=== PATIENT | female | born 1995 | race Caucasian/White ===

== ENCOUNTER 2018-07-25 15:49 | Outpatient (CLI) | payer OTHER ==
[~2018-07-25] VITALS: Ht 160 cm; Wt 97.0 kg
[2018-07-25] MEDS ORDERED: PNV11TAB PO (15:58)
[2018-07-25 15:59] VITALS: Ht 160 cm; Wt 97.0 kg
[2018-07-25 16:00] VITALS: BP 116/61; PULSE 94; RESP 19
--- NOTE | 2018-07-25 17:01 | PN ---
Triage Information Date/Time July 25, 2018 Reason for visit: DFM Weeks of Gestation 33 weeks and 2 days /Para 1 para 0 Diabetes: none Hypertention: none Objective Vital Signs Date Temp Pulse Resp B/P (MAP) Pulse Ox O2 O2 Flow FiO2 Time Delivery Rate 07/25/18 98.6 94 19 116/61 High Flow 16:00 (79) Heart Rate: 150's Contractions: None Exam Deferred Results/Medications Imaging Results Normal biophysical profile. Cervix measures 3.6 cm in length. Disposition: Discharge Assessment/Plan Will follow as outpatient in clinic CHRISTINA ADHIKARI MD Jul 25, 2018 17:01
--- NOTE | 2018-07-25 17:29 | TRIAGE ---
OB Triage Datetime Report Generated by CPN: 07/25/2018 17:29 Datetime: 07/25/2018 16:49 Labor Evaluation Frequency: 0 Monitor Mode: External Pattern: Normal: <= 5 Contractions in 10 Minutes Resting Tone Decherd: Relaxed Contraction Comments: NONE NOTED Heart Rate FHR Baseline Rate: 140 Monitor Mode: External US Variability: Moderate 6-25 bpm Accelerations: 15X15 Decelerations: None Category: Category I Datetime: 07/25/2018 16:03 Assessment Type: Triage Maternal Assessment Level of Consciousness: Fully Conscious DTR's/Clonus: DTRs 2+; No Clonus Headache: Denies Blurred Vision: No Respiratory Effort: Unlabored; Regular Rhythm; Equal Expansion Breath Sounds, Left: Clear and Equal Breath Sounds, Right: Clear and Equal Nausea/Vomiting: Denies RUQ Epigastric Pain: Denies Lower Extremities Edema: None Degree: None Upper Extremities Edema: None Degree: None Facial Edema: None Fall Risk Assessment History of Falling: (0) No Secondary Diagnosis: (0) No Ambulatory Aid: (0) Bedrest/Nurse Assist IV Therapy: (0) No Gait: (0) Normal/Bedrest/Immobile Mental Status: (0) Oriented to Own Ability Fall Score: 0 Fall Risk Score Definition: No Risk: No action required Datetime: 07/25/2018 16:02 Time of Arrival: 07/25/2018 15:36 EGA: 33.2 Arrived By: Ambulatory Arrived From: Office Chief Complaint: DFM Movement: Present Contractions: Denies/Absent Rupture of Membranes: Denies Vaginal Bleeding: None Vaginal Discharge: Denies Recent Sexual Intercouse: Denies Abdominal Trauma: Not Applicable Patient Complaints: Other Time Provider Notified: 07/25/2018 17:02 Provider Notified: DR PIEDRA Initial Plan: TONY ARNOLD
== END 2018-07-25 17:10 | disposition home or self-care (01) ==
LOC: OBT 15:49 → L-D 15:51 → OBT 17:10
PROVIDERS: ATTEND Obstetrics & Gynecology
DX: O36.8130 Decreased fetal movements, third trimester, not applicable or unspecified (principal); Z3A.33 33 weeks gestation of pregnancy
CPT/HCPCS: 76818; Z7500; G0463

== ENCOUNTER 2018-09-13 11:39 | Inpatient (IN) | payer OTHER ==
[~2018-09-13] VITALS: Ht 160 cm; Wt 98.6 kg
[~2018-09-13 11:39] MED LIST: IBUP-1542 PO; PNV11TAB PO
[2018-09-13] MEDS ORDERED: OXYTOCIN 30 UNITS/LR 500 ML IV PRN (12:30)
[2018-09-13] MEDS ORDERED: CARBOPROST 250 MCG INJ IM PRN (12:30)
[2018-09-13] MEDS ORDERED: MISOPROSTOL 200 MCG TAB PR PRN (12:30)
[2018-09-13] MEDS ORDERED: MISOPROSTOL 50 MCG CAPSULE VAG ONE (12:30)
[2018-09-13] MEDS ORDERED: LIDOCAINE 1% (MPF) 30 ML INJ INJ PRN (12:30)
[2018-09-13] MEDS ORDERED: METHYLERGONOVINE 0.2 MG INJ IM PRN (12:30)
[2018-09-13] MEDS ORDERED: OXYTOCIN 30 UNITS/LR 500 ML IV SCH ×3 (12:30)
[2018-09-13 12:37] VITALS: BP 108/58; PULSE 109; RESP 20; Ht 160 cm; Wt 98.6 kg
[2018-09-13] MEDS: LACTATED RINGER'S 1,000 ML IV SCH ×2 (16:11→23:50)
[2018-09-13] MEDS: MISOPROSTOL 50 MCG CAPSULE PO SCH ×3 (16:53→21:05)
--- NOTE | 2018-09-13 19:08 | HP ---
Date/Time of Note Date/Time of Note DATE: 09/13/18 TIME: 19:02 OB - History Hx of Present Free Text/Dictation 23-year-old female 1 para 0 at 40 weeks and 3 days admitted for induction of labor Last Menstrual Period: Nov 15, 2017 Estimated Due Date: Sep 10, 2018 : 1 Para: 0 Care: Limited Care Ultrasounds: Normal mid trimester US Obstetrical Complications: Other (Incompliance. Positive RPR and FTA-ABS was treated for syphilis x3 injections) Medical Complications: Other (Positive RPR and FTA-ABS has received 3 benzathine pen G 1 week apart) Past Family/Social History * Past Medical, Surgical, Family and Obstetric Histories reviewed from chart. Blood Type: O+ Rubella: immune RPR/VDRL: Negative GBS Status: Negative HBsAG: Negative OB Admission Exam Vital Signs Vital Signs Vital Signs Date Temp Pulse Resp B/P (MAP) Pulse Ox O2 O2 Flow FiO2 Time Delivery Rate 09/13/18 98.1 109 20 108/58 Room Air 12:37 (75) Physical Exam HEENT: WNL Heart: Rhythm Normal Lungs: Clear, Equal Abdomen: WNL Extremities: Normal Reflexes: Normal Cervical Dilatation: None Effacement: 0% Station: -3 Membranes: Intact Heart Rate: 140's Accelerations: Accelerations Present Decelerations: No Decelerations Varibility: Marked Contractions on Admission: None Last 72 hours Lab Results CBC & BMP 09/13/18 14:51 OB Assessment/Plan Reason for admission: induction of labor Other Assessment: Post term For induction of labor Other plan: Induce labor using Cytotec CHRISTINA ADHIKARI MD Sep 13, 2018 19:08
[2018-09-14] MEDS: MISOPROSTOL 50 MCG CAPSULE PO SCH ×2 (03:25→08:00)
[2018-09-14] MEDS: LACTATED RINGER'S 1,000 ML IV SCH ×2 (06:54→16:02)
[2018-09-14] MEDS ORDERED: OXYTOCIN 30 UNITS/LR 500 ML IV SCH ×2 (12:30)
--- NOTE | 2018-09-14 13:39 | PREAC ---
Date/Time of Note Date/Time of Note DATE: 09/14/18 TIME: 13:38 Anesthesia Eval and Record Evaluation Time Pre-Procedure Interview DATE: 09/14/18 TIME: 13:38 Age 23 Sex female NPO: 8 hrs Preoperative diagnosis labor pain Planned procedure epidural Past Medical History Past Medical History: None : Gestational age: (40.3) Surgery & Anesthesia Issues No known issue Meds Anticoagulation: No Beta Srini within 24 hr: No Reason Beta Srini not given: Pt. not on B-Srini Reported Medications [id number] ( 19) 1 Each Tablet, 1 TAB PO DAILY, TAB 07/25/18 Current Medications Lactated Ringer's 1,000 ml @ 125 mls/hr Q8H IV Last administered on 09/14/18at 06:54; Admin Dose 125 MLS/HR; Start 09/13/18 at 12:19 Lidocaine (Xylocaine 1% (Mpf)) 30 ml ONCE PRN INJ .EPISIOTOMY; Start 09/13/18 at 12:30 Oxytocin/Lactated Ringer's 500 ml @ 500 mls/hr ONCE POST IV ; Start 09/13/18 at 12:30 Oxytocin/Lactated Ringer's 500 ml @ 125 mls/hr POST IV ; Start 09/13/18 at 12:30 Oxytocin/Lactated Ringer's 500 ml @ 0 mls/hr ONCE PRN IV .VAGINAL BLEEDING; Start 09/13/18 at 12:30 Methylergonovine Maleate (Methergine) 0.2 mg ONCE PRN IM .VAGINAL BLEEDING; Start 09/13/18 at 12:30 Carboprost Tromethamine (Hemabate) 250 mcg ONCE PRN IM .VAGINAL BLEEDING; Start 09/13/18 at 12:30 Misoprostol (Cytotec) 1,000 mcg ONCE PRN NE .VAGINAL BLEEDING; Start 09/13/18 at 12:30 Oxytocin/Lactated Ringer's 500 ml @ 0 mls/hr FOR AUGMENTATION IV Last administered on 09/14/18at 13:19; Admin Dose 1 MLS/HR; Start 09/14/18 at 12:30 Meds reviewed: Yes Allergies Coded Allergies: No Known Allergy (Unverified , 09/18/12) Allergies Reviewed: Yes Labs/Studies Labs Reviewed: Reviewed by anesthesiologist Result Diagram: 09/13/18 4025 Laboratory Tests 09/13/18 14:51 Blood Bank Test 09/13/18 14:51 Antibody Screen NEGATIVE Blood Type O POSITIVE Rh Immune Globulin Candidate NO test: Positive Studies: ECG (n/a), CXR (n/a) Pre-procedure Exam Last vitals Vital Signs Date Temp Pulse Resp B/P (MAP) Pulse Ox O2 O2 Flow FiO2 Time Delivery Rate 09/13/18 98.1 109 20 108/58 Room Air 12:37 (75) Airway: Adequate mouth opening Mallampati: Mallampati I Teeth: Normal Lung: Normal Heart: Normal ASA Physical Status ASA physical status: 2 Emergency: None Planned Anesthetic Neuraxial: Epidural Pre-operative Attestations Prior to commencing anesthesia and surgery, the patient was re-evaluated, there was verification of: *The patient's identity *The results of appropriate recent lab work and preoperative vital signs *The above evaluation not changing prior to induction *Anesthetic plan, risk benefits, alternative and complications discussed with patient/family; questions answered; patient/family understands, accepts and wishes to proceed. SHAWN DANIELS MD Sep 14, 2018 13:39
--- NOTE | 2018-09-14 13:57 | PAC ---
Date/Time of Note Date/Time of Note DATE: 09/14/18 TIME: 13:57 Post-Anesthesia Notes Post-Anesthesia Note Last documented vital signs Vital Signs Date Temp Pulse Resp B/P (MAP) Pulse Ox O2 O2 Flow FiO2 Time Delivery Rate 09/13/18 98.1 68 20 118/61 99 Room Air 14:37 Activity: WNL Respiratory function: WNL Cardiovascular function: WNL Mental status: Baseline Pain reasonably controlled: Yes Hydration appropriate: Yes Nausea/Vomiting absent: No SHAWN DANIELS MD Sep 14, 2018 13:57
[2018-09-14] MEDS ORDERED: ONDANSETRON 4 MG INJ IV PRN (14:00)
[2018-09-14] MEDS ORDERED: DIPHENHYDRAMINE 50 MG INJ IV PRN (14:00)
[2018-09-14] MEDS ORDERED: FENTAnyl 2MCG/ML-ROPIV 0.2% 100 ML BAG EPI SCH (14:00)
[2018-09-14] MEDS ORDERED: NALOXONE (0.4 MG/ML) INJ IV PRN (14:00)
[2018-09-14] MEDS ORDERED: MINERAL OIL 30ML CUP PO ONE (16:30)
[2018-09-14] MEDS ORDERED: MINERAL OIL LIGHT 10 ML VIAL TOP ONE (17:00)
[2018-09-14] MEDS ORDERED: ACETAMINOPHEN 500 MG TAB PO STA (18:32)
[2018-09-14] MEDS ORDERED: KETOROLAC 30 MG INJ IV STA (18:32)
--- NOTE | 2018-09-14 18:32 | LDN ---
Date/Time of Note Date/Time of Note DATE: 09/14/18 TIME: 18:30 Delivery Summary Normal spontaneous vaginal delivery of a viable over intact perineum Weeks of Gestation 40 weeks and 4 days Placenta Delivered: Spontaneously Meconium: none Episiotomy: No Perineal laceration: 2 Laceration repair: Second-degree perineal laceration was repaired in layers using 2-0 Vicryl on a CT1 needle in deeper layers and 2-0 chromic on a small half needle superficially Anesthesia type: Epidural Estimated blood loss: 300 Sponge & Needle done & correct: Yes All needle counts correct: Yes Infant Delivery Information Sex Infant Sex: female Apgars 1 Minute: 9 5 Minute: 9 Suctioning Nose & mouth suctioned at carlos: Yes Delee suction performed: No Umbilical Cord Umbilical cord with: 3 Vessels Cord presentations: no nuchal cord Cord Blood was obtained: Yes Mother & Baby Disposition Disposition Mom & Baby to Maternity; Good: Yes (Mother and baby were recovering in good condition) Mom transferred to: Other (Maternity floor) Baby to NICU: No CHRISTINA ADHIKARI MD Sep 14, 2018 18:32
[2018-09-14 20:25] VITALS: BP 128/77; PULSE 80; RESP 19
[2018-09-14] MEDS ORDERED: LACTATED RINGER'S 1,000 ML IV* SCH (20:27)
[2018-09-14] MEDS ORDERED: DIBUCAINE 1% 30 GM OINT TOP PRN (20:30)
[2018-09-14] MEDS ORDERED: CARBOPROST 250 MCG INJ IM PRN (20:30)
[2018-09-14] MEDS ORDERED: MISOPROSTOL 200 MCG TAB PR PRN (20:30)
[2018-09-14] MEDS ORDERED: ZOLPIDEM 5 MG TAB PO PRN (20:30)
[2018-09-14] MEDS ORDERED: BENZOCAINE 20% 56 ML SPRAY TOP PRN (20:30)
[2018-09-14] MEDS ORDERED: METHYLERGONOVINE 0.2 MG INJ IM PRN (20:30)
[2018-09-14] MEDS ORDERED: HYDROCODONE/APAP (5/325) TAB PO PRN ×2 (20:30)
[2018-09-14] MEDS ORDERED: OXYTOCIN 30 UNITS/LR 500 ML IV PRN (20:30)
[2018-09-14] MEDS: SENNA/DOCUSATE NA (8.6MG/50MG) TAB PO SCH (21:51)
[2018-09-14] MEDS: MAGNESIUM HYDROXIDE 30ML CUP PO SCH (21:51)
[2018-09-14] MEDS: WITCH HAZEL/GLYCERIN PAD PR PRN (21:52)
[2018-09-14] MEDS: LANOLIN HPA 1 PKT TOP PRN (21:52)
[2018-09-14 23:15] VITALS: BP 129/62; PULSE 81; RESP 17
[2018-09-14] MEDS: CEPHALEXIN 500 MG CAP PO SCH (23:38)
[2018-09-14] MEDS: IBUPROFEN 600 MG TAB PO SCH (23:39)
[2018-09-15 00:20] VITALS: BP 122/66; PULSE 78; RESP 18
[2018-09-15 03:48] VITALS: BP 97/52; PULSE 78; RESP 17
[2018-09-15] MEDS: CEPHALEXIN 500 MG CAP PO SCH ×3 (05:43→17:28)
[2018-09-15] MEDS: IBUPROFEN 600 MG TAB PO SCH ×3 (05:44→17:28)
[2018-09-15 08:30] VITALS: BP 117/56; PULSE 72; RESP 18
[2018-09-15] MEDS: MAGNESIUM HYDROXIDE 30ML CUP PO SCH ×2 (09:04→21:56)
[2018-09-15] MEDS: SENNA/DOCUSATE NA (8.6MG/50MG) TAB PO SCH ×2 (09:04→21:56)
--- NOTE | 2018-09-15 12:54 | DS ---
Date/Time of Note Date/Time of Note Home today or next day DATE: 09/15/18 TIME: 12:53 Obstetrical Discharge Record Final Diagnosis Final Diagnosis: Term delivered Other Final Diagnosis Status post vaginal delivery Vaginal Delivery Obstetrical Delivery: Spontaneous, Laceration, Repaired Complications Augmentation: Yes Induction: Yes Condition on Discharge Physical Assessment Last Vitals: See nurse's notes Voiding: Yes Bowel Movement: Yes Breast: Soft, non-tender, Filling Fundus: Firm Abdomen and Incision: Abdomen is soft with firm fundus Episiotomy: Perineum is healing well and appears to be clean Calf Tenderness: No Patient Condition: Good CHRISTINA ADHIKARI MD Sep 15, 2018 12:54
--- NOTE | 2018-09-15 13:03 | PD.PPDC ---
PREPRESS SPECIALIST Discharge Instruction Provider Information Physician Information 23-year-old female had vaginal delivery Diagnosis [id number] Final Diagnosis: Orovy3p Status post vaginal delivery Condition [id number] Patient Condition: Palpx1x Good Diet Crncy8Fc Diet: Pjusg1o Resume Regular Diet Activity/Restrictions Ouzlc6Rb Activity: Cusjk9r Normal Activity May Shower Zptet4Zh Restrictions: Rdymh2m Nothing in the Vagina Bygsf9Xe Return to Work or School: Mzneq0y Oct 31, 2018 Follow-up Follow-up with Physician: 2, 4, Week/Weeks (In clinic) Return to clinic for [id number] OB Instructions: Ujbxd6m Breast Tenderness Depression Comment: Pelvic rest for 6 weeks CHRISTINA ADHIKARI MD Sep 15, 2018 13:03
[2018-09-15 16:38] VITALS: BP 103/49; PULSE 72; RESP 18
[2018-09-15 20:35] VITALS: BP 105/67; PULSE 91; RESP 18
[2018-09-16] MEDS: CEPHALEXIN 500 MG CAP PO SCH ×3 (00:27→12:08)
[2018-09-16] MEDS: IBUPROFEN 600 MG TAB PO SCH ×3 (00:28→12:09)
[2018-09-16 03:21] VITALS: BP 101/53; PULSE 80; RESP 17
[2018-09-16 08:00] VITALS: BP 107/58; PULSE 72; RESP 16
[2018-09-16] MEDS: SENNA/DOCUSATE NA (8.6MG/50MG) TAB PO SCH (08:37)
[2018-09-16] MEDS ORDERED: MEASLES,MUMPS,RUBELLA VACCINE INJ SC* ONE (09:00)
[2018-09-16] MEDS ORDERED: VARICELLA VACCINE LIVE/PF 1,350 UNIT/0.5 ML ML SC* ONE (09:00)
[2018-09-16] MEDS: MAGNESIUM HYDROXIDE 30ML CUP PO SCH (09:00)
[2018-09-16] MEDS ORDERED: DIPHTH/TET/ACEL PERTUSS (ADULT) 0.5 ML VIAL IM* ONE (09:00)
[2018-09-16] MEDS: LANOLIN HPA 1 PKT TOP PRN (12:09)
[2018-09-16] MEDS: WITCH HAZEL/GLYCERIN PAD PR PRN (12:09)
--- NOTE | 2018-09-17 15:41 | DELSUM ---
Delivery Summary A-C Datetime Report Generated by CPN: 09/17/2018 15:41 DELIVERY PERSONNEL Merchandise Displayer: Diaz, Georgina MATERNAL INFORMATION Delivery Anesthesia: Epidural Medications in Delivery: Pitocin 30 Delivery QBL (ml): 300 Placenta Cultured: No Maternal Complications: None LABOR SUMMARY EDC: 09/10/2018 00:00 No. Babies in Womb: 1 Attempted: No Labor Anesthesia: Epidural LABOR INFORMATION Reason for Induction: Postterm Onset of Labor: 09/13/2018 17:00 Complete Dilatation: 09/14/2018 01:00 Cervical Ripening Agents: Cytotec @ (Annotations: 50 (dose #4}) Group B Beta Strep: Negative Steroids Given: None Reason Steroids Not Administered: Not Applicable MEMBRANES Membranes Rupture Method: Spontaneous Rupture of Membranes: 09/14/2018 11:45 Length of Rupture (hr): 6.25 Amniotic Fluid Color: Clear Amniotic Fluid Amount: Moderate Amniotic Fluid Odor: None STAGES OF LABOR Stage 1 hr: 8 Stage 1 min: 0 Stage 2 hr: 17 Stage 2 min: 0 Stage 3 hr: 0 Stage 3 min: 5 Total Time in Labor hr: 25 Total Time in Labor min: 5 VAGINAL DELIVERY Episiotomy: None Laceration Extension: First Degree Laceration Type: Perineal Laceration Repair: Yes Initial Vag Sponge Count: 10 Final Vag Sponge Count: 10 Initial Vag Sharps Count: 3 Final Vag Sharps Count: 3 Sponge Count Correct: Yes; Vaginal Sweep Performed Sharps Count Correct: Yes BABY A INFORMATION Delivery Date/Time: 09/14/2018 18:00 Method of Delivery: Vaginal Born in Route : No : N/A Forceps: N/A Vacuum Extraction: N/A Shoulder Dystocia : N/A SHOULDER DYSTOCIA BABY A Infant Delivery Date/Time: 09/14/2018 18:00 PRESENTATION/POSITION BABY A Presentation: Cephalic Cephalic Presentation: Vertex Vertex Position: Left Occipital Anterior Breech Presentation: N/A PLACENTA INFORMATION BABY A Placenta Delivery Time : 09/14/2018 18:05 Placenta Method of Delivery: Spontaneous Placenta Status: Delivered SCORES BABY A Heart Rate 1 min: >100 bpm Resp Effort 1 min: Good Cry Reflex Irritability 1 min: Cough/Sneeze/Pulls Away Muscle Tone 1 min: Active Motion Color 1 min: Blue/Pale SCORE 1 MIN: 8 Heart Rate 5 min: >100 bpm Resp Effort 5 min: Good Cry Reflex Irritability 5 min: Cough/Sneeze/Pulls Away Muscle Tone 5 min: Active Motion Color 5 min: Body Conde, Extremit Blue SCORE 5 MIN: 9 INFANT INFORMATION BABY A Gestational Age at Delivery: 40.4 Gestational Status: Full Term- 39- 40.6 Weeks Outcome : Liveborn, with signs of life Infant Condition : Stable Sex: Female IDENTIFICATION/MEDS BABY A ID Band Number: [id number] ID Band Location: Right Leg; Left Arm Sensor Applied: Yes Sensor Number: [id number] Sensor Location : Cord Clamp Vitamin K Given : Aquamephyton 0.5 mg IM Erythromycin Given: Given Both Eyes WEIGHT/LENGTH BABY A Birthweight (gm): 3520 Infant Weight (lb): 7 Weight (oz): 12 Infant Length (in): 20.00 Length (cm): 50.80 CORD INFORMATION BABY A No. Cord Vessels: 3 Nuchal Cord : N/A Cord Blood Taken: Yes Infant Suction: Mouth; Nose ASSESSMENT BABY A Infant Complications: Multiple Variable Decels Respirations: Appears Normal Moving Picture Operator/ALS Called : No Transferred To: Remains with Mother
== END 2018-09-16 15:41 | disposition home or self-care (01) | DRG 807 ==
LOC: OBT 11:39 → L-D 11:42 → OBT 12:01 → L-D 12:01 → PP1 09-14 20:11
PROVIDERS: ADMIT Obstetrics & Gynecology; ATTEND Obstetrics & Gynecology
PROC: 10E0XZZ Delivery of Products of Conception, External Approach (ICD-10-PCS; principal; 2018-09-14)
PROC: 0KQM0ZZ Repair Perineum Muscle, Open Approach (ICD-10-PCS; 2018-09-14)
PROC: 3E033VJ Introduction of Other Hormone into Peripheral Vein, Percutaneous Approach (ICD-10-PCS; 2018-09-14)
DX: O48.0 Post-term pregnancy (principal); O70.1 Second degree perineal laceration during delivery; Z37.0 Single live birth; Z3A.40 40 weeks gestation of pregnancy
CPT/HCPCS: 62322; 76815; 76818; 80307; 85025; 85610; 85730; 86592; 86850; 86900; 86901; 87285; 87340; 90715; 90716; G0463; J1885; J2590; J3010; J7120